=== PATIENT | male | born 2000 | race Caucasian/White ===

== ENCOUNTER 2019-07-09 23:00 | Emergency (ER) | payer OTHER ==
[~2019-07-09] VITALS: Ht 177.8 cm; Wt 75.0 kg
[2019-07-09 23:10] VITALS: BP 129/80; TEMP 97
[2019-07-09] MEDS ORDERED: NORCO 325 MG-51 TAB PO (23:34)
[2019-07-10 00:13] VITALS: PULSE 85
== END 2019-07-10 00:13 | disposition home or self-care (01) ==
LOC: COL.ER 23:00
DX: T23.002A Burn of unspecified degree of left hand, unspecified site, initial encounter (principal); T31.0 Burns involving less than 10% of body surface; X10.2XXA Contact with fats and cooking oils, initial encounter